=== PATIENT | male | born 1985 | race Caucasian/White ===

== ENCOUNTER 2020-06-17 02:51 | Emergency (ER) | payer MEDICAID ==
[~2020-06-17] VITALS: Ht 175.3 cm; Wt 88.0 kg
--- NOTE | 2020-06-17 03:21 | PHYS DOC ---
Past History Past Medical History: Bronchitis, Pneumonia Additional Past Medical Histor: back problems Past Surgical History: Other Additional Past Surgical Histo: steel plates in left hand Smoking: Cigarettes Alcohol Use: Rarely Drug Use: Amphetamine, Cocaine, Heroin, Methadone, Methamphetamine Adult General Chief Complaint Chief Complaint: SHORTNESS OF BREATH [facility] HPI Patient is a 34-year-old male who presents for shortness of breath. This is a an acute on chronic problem. Patient reports longstanding history of illicit drug use, admits being admitted to [facility] approximately 1 week ago for accidental overdose of narcotic medications. He was admitted overnight and subsequently discharged next day. Since that time, patient has continued to use illicit drugs such as heroin since discharge. Patient reports intermittent feelings of not being able to catch his breath fully. Denies any fever, COVID- 19 contacts, history of pulmonary embolism, chest pain, ripping or tearing pain in chest, hemoptysis, no sputum production and/or change, no cough, long distance travel, history of endocarditis or IV drug use. Patient reports last use of heroin was 3 days ago Review of Systems Review of Systems Fourteen body systems of review of systems have been reviewed. See HPI for pertinent positives and negative responses, other armstrong all other systems are negative, non-pertinent or non-contributory Physical Exam Physical Exam Constitutional: Well developed, well nourished, no acute distress, non-toxic appearance. HENT: Normocephalic, atraumatic, bilateral external ears normal, oropharynx moist, no oral exudates, nose normal. Eyes: PERRLA, EOMI, conjunctiva normal, no discharge. Neck: Normal range of motion, no tenderness, supple, no stridor. Cardiovascular: Heart rate tachycardic, sinus rhythm, no murmurs rubs or gallops Lungs & Thorax: Bilateral breath sounds clear to auscultation without wheezes or crackles, no respiratory distress or accessory muscle usage Abdomen: Bowel sounds normal, soft, no tenderness, no masses, no pulsatile masses. Nonsurgical abdomen, no peritoneal signs Skin: Warm, dry, no erythema, no rash. Back: No tenderness, no CVA tenderness. Extremities: No tenderness, no cyanosis, no clubbing, ROM intact, no edema. Neurologic: Alert and oriented X 3, grossly normal motor & sensory function, no focal deficits noted. Psychologic: Affect normal, judgement normal, anxious mood, appears unsettled throughout patient encounter constantly moving, appears under the influence of an illicit drug Current Patient Data Vital Signs Vital Signs Date Time Temp Pulse Resp B/P (MAP) Pulse Ox O2 Delivery O2 Flow Rate FiO2 06/17/20 02:52 128 16 163/103 (123) 97 Room Air EKG EKG EKG ordered and interpreted by myself at 031 2 hours as sinus tachycardia at 122 bpm, unremarkable intervals, no axis deviation, no ischemic findings, no STEMI Radiology/Procedures Radiology/Procedures PROCEDURE: CHEST AP ONLY AP chest. HISTORY: Short of breath AP view was taken of the chest. Lungs are clear. Heart is normal in size. There is no pleural effusion. IMPRESSION: 1. No acute chest disease. Electronically signed by: Osman Mcrae MD (06/17/2020 3:35 AM) [id number] Heart Score HEART Score for Chest Pain: HEART Score for Chest Pain Response (Comments) Value History Slighlty/Non-Suspicious 0 ECG Normal 0 Age < 45 0 Risk Factors 1 or 2 Risk Factors 1 Total 1 Risk Factors: Risk Factors: DM, Current or recent (<one month) smoker, HTN, HLP, family history of CAD, obesity. Risk Scores: Risk Factors: DM, Current or recent (<one month) smoker, HTN, HLP, family history of CAD, obesity. Course & Med Decision Making Course & Med Decision Making Nontoxic ambulatory patient seen on ER arrival Airway patent, breathing unremarkable, vitals remarkable for sinus tachycardia Comprehensive history and physical examination performed, subsequent diagnostic studies ordered I discussed most likely diagnosis of shortness of breath related to ongoing illicit drug use versus tobacco abuse. There is no indication for antibiotics or other intervention at this time I did disclose this might be an acute presentation of more concerning pathology but at present, I do not feel there is any indication for further work-up in the ER Patient has PCP in local area and admits having good access to follow-up. I advised patient to be follow-up within upcoming 48 to 72 hours for hospital discharge in this ER follow-up, he is amenable to this Strict return precautions were discussed with patient prior to ER departure in stable condition home for continued supportive care and instructions to abstain from illicit drug and tobacco use Dragon Disclaimer Dragon Disclaimer This electronic medical record was generated, in whole or in part, using a voice recognition dictation system. Departure Departure: Impression: Primary Impression: Shortness of breath Additional Impressions: Heroin abuse Tobacco abuse Disposition: 01 DC HOME SELF CARE/HOMELESS Condition: STABLE Referrals: ARIEL CINTRON (PCP) Please call first thing in the morning to schedule outpatient follow-up in upcoming 1 to 7 days time to ensure symptomatic resolution Patient Instructions: Shortness of Breath Problem Qualifiers LINDA GIBBS DO Jun 17, 2020 03:21
--- NOTE | 2020-06-17 03:37 | RAD ---
AP chest. HISTORY: Short of breath AP view was taken of the chest. Lungs are clear. Heart is normal in size. There is no pleural effusion. IMPRESSION: 1. No acute chest disease. Electronically signed by: Osman Mcrae MD (06/17/2020 3:35 AM) [id number]
[2020-06-17 03:46] VITALS: BP 144/83
--- NOTE | 2020-06-17 09:52 | EKG ---
[address] [address] Test Date: 2020-06-17 Test Time: 03:07:56 Pat Name: MAKSIM JOSUE Department: Room: Gender: M Garbage Truck Driver: EDUARDO : 1985 Requested By: LINDA GIBBS Order Number: [id number] Reading MD: Measurements Intervals [place] Rate: 122 P: 46 MD: 138 QRS: 32 QRSD: 76 T: 56 QT: 290 QTc: 414 Interpretive Statements SINUS TACHYCARDIA OTHERWISE NORMAL ECG RI6.02 No previous ECG available for comparison
== END 2020-06-17 03:50 | disposition home or self-care (01) ==
LOC: ER 02:51
DX: R06.02 Shortness of breath (principal); F17.210 Nicotine dependence, cigarettes, uncomplicated; F15.10 Other stimulant abuse, uncomplicated; F14.10 Cocaine abuse, uncomplicated; F11.20 Opioid dependence, uncomplicated
CPT/HCPCS: 71045; 93005; 99283

== ENCOUNTER 2020-09-26 11:02 | Emergency (ER) | payer SELFPAY ==
[~2020-09-26] VITALS: Ht 175.3 cm; Wt 95.0 kg
[2020-09-26 11:55] VITALS: BP 141/95
--- NOTE | 2020-09-26 12:15 | PHYS DOC ---
Past History Past Medical History: Bronchitis, Pneumonia Additional Past Medical Histor: back problems Past Surgical History: Other Additional Past Surgical Histo: steel plates in left hand Smoking: Cigarettes Alcohol Use: Rarely Drug Use: Amphetamine, Cocaine, Heroin, Methadone, Methamphetamine Adult General HPI HPI Patient is a 34-year-old male presents to the emergency department with a chief complaint of needing his Adderall refilled and also requested a work excuse for today. Patient states that he is no longer able to see his primary care phys ician to obtain his Adderall 30 mg tablets twice daily related to a loss of job. Patient states he has a new job and [facility] medication. Patient is asking for 10 days worth of his ADD medication. Patient also states he has had a chronic cough for the past 2 weeks with nasal congestion and intermittent headaches however denies headache today. Patient states he coughs up a moderate amount of bhatia-colored sputum mostly at night. Patient states he does not want a Covid19 test today stating he does not have any Covid virus worries as he tested -2 weeks ago. Patient denies loss of taste or loss of smell, denies chest pains, shortness of breath, abdominal pain, nausea, vomiting, diarrhea. Patient denies any rashes of his skin. Patient denies fever chills. Patient denies any other health concerns or medical complaints. Patient states he is a pack-a-day cigarette smoker, denies alcohol use or illicit drug use. Patient denies homicidal or suicidal i deations. Review of Systems Review of Systems 14 body systems of review of systems have been reviewed. See HPI for pertinent positives and negative responses, otherwise all other systems are negative, nonpertinent or noncontributory. Allergies Allergies Allergies Coded Allergies Type Severity Reaction Last Updated Verified No Known Allergies Allergy Unknown 06/17/20 Yes Physical Exam Physical Exam Constitutional: Well developed, well nourished, no acute distress, non-toxic appearance. HENT: Normocephalic, atraumatic, bilateral external ears normal, oropharynx m oist, no oral exudates, nose normal. Oropharynx pink, moist, no postnasal drip, no erythema appreciated, no peritonsillar abscess, no uvular edema. Nasal turbinates erythematous with nasal congestion bilaterally. There is no lymphadenopathy of the head or neck. Eyes: PERRLA, EOMI, conjunctiva normal, no discharge. Neck: Normal range of motion, no tenderness, supple, no stridor. No nuchal rigidity, no meningismus signs. Cardiovascular:Heart rate regular rhythm, no murmur, heart sounds S1-S2 consultation. Lungs & Thorax: Bilateral breath sounds clear to auscultation all lung alfaro. Abdomen: Bowel sounds normal, soft, no tenderness, no masses, no pulsatile masses. Skin: Warm, dry, no erythema, no rash. Back: No tenderness, no CVA tenderness. Extremities: No tenderness, no cyanosis, no clubbing, ROM intact, no edema. Neurologic: Alert and oriented X 3, normal motor function, normal sensory function, no focal deficits noted. Psychologic: Affect normal, judgement normal, mood normal. EKG EKG [] Radiology/Procedures Radiology/Procedures [] Heart Score Risk Factors: Risk Factors: DM, Current or recent (<one month) smoker, HTN, HLP, family history of CAD, obesity. Risk Scores: Risk Factors: DM, Current or recent (<one month) smoker, HTN, HLP, family history of CAD, obesity. Course & Med Decision Making Course & Med Decision Making Pertinent Labs and Imaging studies reviewed. (See chart for details) 34-year-old male, vital signs reviewed, presents emergency department with request of Adderall refill and work excuse. Physical examination consistent with URI, patient does not wish to be treated for URI symptoms and is only asking for Adderall refill and work excuse. Explained to patient that an emergency department cannot fill Adderall prescription for chronic use and must be filled by primary care. Discussed smoking cessation with patient. Patient gave verbal understanding of this, will give work excuse, patient gave verbal understanding of discharge home instructions, return to ER concerns, discharged home without incident. Patient states he will follow-up with his psychiatric appointment at [facility] in 10 days. Dragon Disclaimer Dragon Disclaimer This electronic medical record was generated, in whole or in part, using a voice recognition dictation system. Departure Departure: Impression: Primary Impression: URI (upper respiratory infection) Additional Impressions: Encounter to obtain excuse from work Encounter for medication refill Tobacco abuse Disposition: 01 DC HOME SELF CARE/HOMELESS Condition: GOOD Referrals: PCP,NO (PCP) Patient Instructions: Smoking Cessation, Upper Respiratory Infection, Adult Additional Instructions: Please keep your appointment with the [facility] to obtain your Adderall prescription. Return to the emergency department for worsening symptoms or other concerns. Problem Qualifiers Primary Impression: URI (upper respiratory infection) URI type: unspecified URI Qualified Codes: J06.9 - Acute upper respiratory infection, unspecified BUTCH CAMPOVERDE APRN Sep 26, 2020 12:15
== END 2020-09-26 12:49 | disposition home or self-care (01) ==
LOC: ER 11:02
DX: J06.9 Acute upper respiratory infection, unspecified (principal); Z76.0 Encounter for issue of repeat prescription; F17.210 Nicotine dependence, cigarettes, uncomplicated
CPT/HCPCS: 99281